=== PATIENT | female | born 1990 | race Caucasian/White ===

== ENCOUNTER 2017-03-13 10:40 | Observation (INO) | payer MEDICAID ==
[~2017-03-13] VITALS: Ht 167.6 cm; Wt 95.0 kg
[~2017-03-13 10:40] MED LIST: DESOTAB7 PO
[2017-03-13 10:42] VITALS: BP 151/82; PULSE 62; RESP 19; TEMP 97.9; O2SAT 100
[2017-03-13] MEDS ORDERED: SODIUM CHLORIDE 0.9% FLUSH 10 ML FLUSH IV FLUSH PRN (11:15)
[2017-03-13] MEDS ORDERED: ONDANSETRON HCL 4 MG/2 ML VIAL IVP ONE (11:15)
[2017-03-13] MEDS ORDERED: FAMOTIDINE 20 MG/2 ML VIAL IV PUSH ONE (11:15)
--- NOTE | 2017-03-13 11:18 | PD ---
HPI Chief Complaint: Abdominal Pain Time Seen by Provider: 11:06 Travel History International Travel<30 days: No Contact w/Intl Traveler<30days: No Traveled to known affect area: No History of Present Illness HPI 26-year-old female complains of abdominal pain, nausea vomiting. Patient states that she has history of gallbladder stone since 2014. Patient states that she started having abdominal pain with nausea vomiting for the past week and a half. Patient was seen in emergency room at [facility] 3 days ago. Patient states that she had ultrasound and blood tests done. Patient states that she was diagnosed with gallstone. Patient was advised to follow with her personal physician and outpatient surgeon. Patient states that she was given prescription for tramadol for pain. Patient states that she had persistent right upper quadrant abdominal pain and nausea vomiting since then. Isn't states the pain is sharp pain started on the right upper quadrant of the abdomen with radiation to the back and to the right chest area. Patient denies any fever chills. Patient denies any dysuria or frequency. Patient denies any vaginal discharge or bleeding. Patient denies any chance of being . On a scale of 1-10 the pain is a 10. Patient's on control pills. PFSH Past Medical History Diminished Hearing: No Immunizations Current: Yes ?: Not Past Surgical History Ear Surgery: Yes (TUBES) Social History Alcohol Use: No Tobacco Use: No Substance Use: No Allergies-Medications (Allergen,Severity, Reaction): Coded Allergies: bee venom protein (honey bee) (Verified Allergy, Severe, 03/05/17) grass pollen (Verified Allergy, Severe, 03/05/17) Reported Meds & Prescriptions Reported Meds & Active Scripts Active Reported Enskyce (Desogestrel-Ethinyl Estradiol) 0.15-30 Mg-Mcg Tab 1 Tab PO DAILY Review of Systems General / Constitutional: No: Fever Eyes: No: Visual changes HENT: No: Headaches Cardiovascular: No: Chest Pain or Discomfort Respiratory: No: Shortness of Breath Gastrointestinal: Positive: Nausea, Vomiting, Abdominal Pain Genitourinary: No: Dysuria Musculoskeletal: No: Pain Skin: No Rash Neurologic: No: Weakness Psychiatric: No: Depression Endocrine: No: Polydipsia Hematologic/Lymphatic: No: Easy Bruising Physical Exam Narrative GENERAL: Well-nourished, well-developed patient. SKIN: Focused skin assessment warm/dry. HEAD: Normocephalic. EYES: No scleral icterus. No injection or drainage. NECK: Supple, trachea midline. No JVD or lymphadenopathy. CARDIOVASCULAR: Regular rate and rhythm without murmurs, gallops, or rubs. RESPIRATORY: Breath sounds equal bilaterally. No accessory muscle use. GASTROINTESTINAL: Abdomen soft, nondistended. Patient has moderate tenderness on palpation right upper quadrant of the abdomen. No rebound tenderness. No mass. MUSCULOSKELETAL: No cyanosis, or edema. BACK: Nontender without obvious deformity. No CVA tenderness. No large exam normal. Data Data Last Documented VS Vital Signs Date Time Temp Pulse Resp B/P (MAP) Pulse Ox O2 Delivery O2 Flow Rate FiO2 03/13/17 11:47 99 03/13/17 10:42 97.9 62 19 Orders Orders Complete Blood Count With Diff (03/13/17 11:12) Comprehensive Metabolic Panel (03/13/17 11:12) Lipase (03/13/17 11:12) Urinalysis - C+S If Indicated (03/13/17 11:12) Us Abdomen Gallbladder (03/13/17 ) Iv Access Insert/Monitor (03/13/17 11:12) Ecg Monitoring (03/13/17 11:12) Oximetry (03/13/17 11:12) Ondansetron Inj (Zofran Inj) (03/13/17 11:15) Sodium Chlor 0.9% 1000 Ml Inj (Ns 1000 M (03/13/17 11:12) Sodium Chloride 0.9% Flush (Ns Flush) (03/13/17 11:15) Famotidine Inj (Pepcid Inj) (03/13/17 11:15) Ed Urine Pregnancytest Poc (03/13/17 11:12) Morphine Inj (Morphine Inj) (03/13/17 11:30) Hydromorphone Pf Inj (Dilaudid Pf Inj) (03/13/17 13:30) Piperacil-Tazo 3.375 Gm Premix (Zosyn 3. (03/13/17 13:30) Admit Order (Ed Use Only) (03/13/17 13:19) Labs Laboratory Tests Test 03/13/17 11:20 03/13/17 11:27 03/13/17 11:30 Blood Urea Nitrogen 10 MG/DL Creatinine 1.10 MG/DL Random Glucose 86 MG/DL Total Protein 7.1 GM/DL Albumin 3.7 GM/DL Calcium Level 9.0 MG/DL Alkaline Phosphatase 87 U/L Aspartate Amino Transf (AST/SGOT) 15 U/L Alanine Aminotransferase (ALT/SGPT) 17 U/L Total Bilirubin 0.4 MG/DL Sodium Level 138 MEQ/L Potassium Level 3.9 MEQ/L Chloride Level 107 MEQ/L Carbon Dioxide Level 24.2 MEQ/L Anion Gap 7 MEQ/L Estimat Glomerular Filtration Rate 61 ML/MIN Lipase 78 U/L Urine Color LIGHT-YELLOW Urine Turbidity CLEAR Urine pH 6.5 Urine Specific [place] 1.005 Urine Protein NEG mg/dL Urine Glucose (UA) NEG mg/dL Urine Ketones NEG mg/dL Urine Occult Blood NEG Urine Nitrite NEG Urine Bilirubin NEG Urine Urobilinogen LESS THAN 2.0 MG/DL Urine Leukocyte Esterase NEG Urine RBC LESS THAN 1 /hpf Urine WBC LESS THAN 1 /hpf Urine Squamous Epithelial Cells <1 /hpf Microscopic Urinalysis Comment CULT NOT INDICATED White Blood Count 7.3 TH/MM3 Red Blood Count 4.41 MIL/MM3 Hemoglobin 12.6 GM/DL Hematocrit 36.9 % Mean Corpuscular Volume 83.8 FL Mean Corpuscular Hemoglobin 28.5 PG Mean Corpuscular Hemoglobin Concent 34.1 % Red Cell Distribution Width 13.6 % Platelet Count 222 TH/MM3 Mean Platelet Volume 8.6 FL Neutrophils (%) (Auto) 71.3 % Lymphocytes (%) (Auto) 22.3 % Monocytes (%) (Auto) 4.4 % Eosinophils (%) (Auto) 1.6 % Basophils (%) (Auto) 0.4 % Neutrophils # (Auto) 5.2 TH/MM3 Lymphocytes # (Auto) 1.6 TH/MM3 Monocytes # (Auto) 0.3 TH/MM3 Eosinophils # (Auto) 0.1 TH/MM3 Basophils # (Auto) 0.0 TH/MM3 CBC Comment DIFF FINAL Differential Comment MDM Medical Decision Making Medical Screen Exam Complete: Yes Emergency Medical Condition: Yes Interpretation(s) Last Impressions Gall Bladder Ultrasound 03/13/17 0000 Signed Impressions: Service Date/Time: Monday, March 13, 2017 11:37 - CONCLUSION: 1. There are multiple stones in the gallbladder. No wall thickening or pericholecystic fluid is present but the managing editor reports a positive sonographic Julian sign raising suspicion for gallbladder inflammation. 2. Remainder of the examination is within normal limits. Curtis Odell MD CBC within normal limit. CMP within normal limit. UA is negative. Differential Diagnosis Differential diagnosis including cholecystitis, cholangitis, gastritis, PUD, pancreatitis, colitis, UTI, pyelonephritis, nephrolithiasis. Narrative Course 26-year-old female with right upper quadrant abdominal pain and nausea vomiting. History of gallstone. Normal saline solution 1 25 cc an hour. Morphine 2 mg IV. Zofran 4 mg IV. Pepcid 20 mg IV. Dilaudid 1 mg IV. Zosyn 3.375 g IV given. Diagnosis Primary Impression: Gallbladder colic Additional Impression: Cholelithiasis Qualified Codes: K80.20 - Calculus of gallbladder without cholecystitis without obstruction Keith Barton MD Mar 13, 2017 11:18
[2017-03-13] MEDS ORDERED: MORPHINE SULFATE 2 MG/ML INJ IV PUSH ONE (11:30)
[2017-03-13] MEDS: SODIUM CHLOR 0.9% 1000 ML INJ 1,000 ML IV SCH ×2 (11:46→13:32)
[2017-03-13 11:47] VITALS: O2SAT 99
[2017-03-13 11:53] LABS: AUTOMATED NEUTROPHIL # 5.2 TH/MM3 (1.8-7.7); BASOPHIL % 0.4 % (0.0-2.0); EOSINOPHIL # 0.1 TH/MM3 (0-0.4); EOSINOPHIL % 1.6 % (0.0-4.0); HEMATOCRIT 36.9 % (35.0-46.0); HEMOGLOBIN 12.6 GM/DL (11.6-15.3); LYMPH % 22.3 % (9.0-44.0); LYMPHOCYTE # 1.6 TH/MM3 (1.0-4.8); MEAN CELL VOLUME 83.8 FL (80.0-100.0); MEAN CORPUSCULAR HEMOGLOBIN 28.5 PG (27.0-34.0); MEAN CORPUSCULAR HGB CONC 34.1 % (32.0-36.0); MEAN PLATELET VOLUME 8.6 FL (7.0-11.0); MONO % 4.4 % (0.0-8.0); MONOCYTE # 0.3 TH/MM3 (0-0.9); NEUT % 71.3 % (16.0-70.0); PLATELET COUNT 222 TH/MM3 (150-450); RED BLOOD COUNT 4.41 MIL/MM3 (4.00-5.30); RED CELL DISTRIBUTION WIDTH 13.6 % (11.6-17.2); WHITE BLOOD COUNT 7.3 TH/MM3 (4.0-11.0)
[2017-03-13 11:58] LABS: BILIRUBIN, URINE NEG (NEG); BLOOD, URINE NEG (NEG); GLUCOSE,URINE NEG (NEG); KETONE, URINE NEG (NEG); NITRITE,URINE NEG (NEG); PH, URINE 6.5 (5.0-8.5); SQUAMOUS EPITHELIAL CELL URINE <1 /hpf (0-5); URINE COLOR LIGHT-YELLOW (YELLW/STRAW); URINE LEUKOCYTE ESTERASE NEG (NEG)
[2017-03-13] MEDS ORDERED: NEOSTIGMINE 5 MG/5 ML SYRINGE IV PUSH ONE (12:00)
[2017-03-13] MEDS ORDERED: DEXAMETHASONE SOD PHOS 4 MG/ML VIAL IV ONE (12:00)
[2017-03-13] MEDS ORDERED: ONDANSETRON HCL 4 MG/2 ML VIAL IV PUSH ONE (12:00)
[2017-03-13] MEDS ORDERED: PROPOFOL 200 MG/20 ML AMP IV ONE (12:00)
[2017-03-13] MEDS ORDERED: ROCURONIUM INJ 50 MG/5 ML SYRINGE IV PUSH ONE (12:00)
[2017-03-13] MEDS ORDERED: LIDOCAINE HCL 1% PF 5 ML SYRINGE OTHER ONE (12:00)
[2017-03-13] MEDS ORDERED: KETOROLAC TROMETHAMINE 30 MG/ML (IVP) VIAL IV PUSH ONE (12:00)
[2017-03-13] MEDS ORDERED: GLYCOPYRROLATE 1 MG/5 ML SYRINGE IV PUSH ONE (12:00)
[2017-03-13 12:05] LABS: ALBUMIN 3.7 GM/DL (3.4-5.0); AST (GOT) 15 U/L (15-37); BICARBONATE 24.2 MEQ/L (21.0-32.0); BLOOD UREA NITROGEN 10 MG/DL (7-18); CHLORIDE 107 MEQ/L (98-107); GLOMERULAR FILTRATION RATE 61 ML/MIN (>89); GLUCOSE,RANDOM 86 MG/DL (74-106); SODIUM (NA) 138 MEQ/L (136-145)
[2017-03-13 12:07] LABS: ALT (GPT) 17 U/L (10-53)
[2017-03-13 12:09] LABS: ALKALINE PHOSPHATASE 87 U/L (45-117); TOTAL BILIRUBIN ADULT 0.4 MG/DL (0.2-1.0); TOTAL PROTEIN 7.1 GM/DL (6.4-8.2)
--- NOTE | 2017-03-13 12:27 | RADRPT ---
EXAM DATE/TIME: 03/13/2017 11:37 [facility] COMPARISON: No previous studies available for comparison. INDICATIONS : Right upper quadrant pain. Gallstones. MEDICAL HISTORY : Gallstones. SURGICAL HISTORY : Ear tubes. ENCOUNTER: Initial ACUITY: 2 weeks PAIN SCORE: 8/10 LOCATION: Right upper quadrant MEASUREMENTS: LIVER: 16.5 cm length COMMON DUCT: 7 mm RIGHT KIDNEY: 10.3 x 4.8 x 4.3 cm FINDINGS: LIVER: Normal echotexture without focal lesion or ductal dilatation. COMMON DUCT: No intraluminal mass or stone visualized. GALLBLADDER: There are multiple stones in the gallbladder. No wall thickening or pericholecystic fluid. The sonogr apher reports a positive sonographic Julian sign. PANCREAS: The visualized portions are within normal limits. RIGHT KIDNEY: No evidence of hydronephrosis, stone, or mass. CONCLUSION: 1. There are multiple stones in the gallbladder. No wall thickening or pericholecystic fluid is prese nt but the truck trailer mechanic reports a positive sonographic Julian sign raising suspicion for gallbladder i nflammation. 2. Remainder of the examination is within normal limits. Curtis Odell MD on March 13, 2017 at 12:05 Board Certified Radiologist. This report was verified electronically.
[2017-03-13] MEDS ORDERED: HYDROmorphone HCL PF 2 MG/ML VIAL IV PUSH ONE (13:30)
[2017-03-13] MEDS ORDERED: PIPERACIL-TAZO 3.375 GM PREMIX 50 ML IV ONE (13:30)
[2017-03-13 13:49] VITALS: BP 122/77; PULSE 55; RESP 20; TEMP 97.8; O2SAT 99
--- NOTE | 2017-03-13 14:28 | MH ---
cc: GEOVANNY MUKHERJEE M.D. DATE OF ADMISSION 03/13/2017 REASON FOR ADMISSION Abdominal pain, cholecystitis. HISTORY OF PRESENT ILLNESS Carey is a pleasant 26-year-old female who has had about a one-week history of severe right upper quadrant abdominal pain. She gives a history of multiple episodes of right upper quadrant pain associated with nausea and vomiting. She states during her most recent she had several episodes of gallbladder attacks and she was advised to undergo cholecystectomy. She elected to complete her and then consider cholecystectomy at that time. She states she was lost to follow-up. Most recently she has had severe right upper quadrant pain associated with nausea and vomiting. Apparently she was at [facility] ER three days ago. She was worked up and told she had a gallbladder problem, but was advised that they did not perform that surgery and she should follow-up with her outpatient physician for a surgical referral. The patient states the pain persisted and she came to the ER here. She states the pain began after she ate a cheeseburger. She denies any fever or chills. She denies any urinary frequency or dysuria. She denies any vaginal discharge and she denies being . She states the pain is a 10 on a scale of 1-10, although she was talking on her cell phone when I came in the room. PAST MEDICAL HISTORY None. PAST SURGICAL HISTORY Tubes in her ears. MEDICATIONS She was given Tramadol for her pain, and she takes control pills. ALLERGIES BEES, GRASS AND POLLEN. SOCIAL HISTORY She does not smoke, quit in January 2017. She does not drink alcohol at all. She is the mother of two young children ages 2 and 1. FAMILY HISTORY She reports that her brother had gallbladder surgery. PHYSICAL EXAMINATION VITAL SIGNS: Temperature 98, pulse 50, blood pressure 130/80, respiratory rate 20. GENERAL: In general this is an obese, pleasant white female sitting in the ER in no apparent distress. HEENT: Sclera white. Pupils equal, round and reactive to light. Oropharynx is clear and moist. NECK: Supple. No masses. LUNGS: Clear to auscultation bilaterally. HEART: S1, S2. No murmur. ABDOMEN: Soft. Tender in the right upper quadrant with Julian's sign. She has multiple abdominal wall stria from the and no obvious hernias. EXTREMITIES: Free range of motion x4. NEUROLOGIC: She is alert and oriented x3. LABORATORY White blood cell count 7, hemoglobin 12, platelet count 222. Electrolytes all within normal limits. Urinalysis is negative. IMAGING Ultrasound demonstrates gallstones. No thickening or pericholecystic fluid. She was reported to have a sonographic Julian's sign. IMPRESSION Acute cholecystitis. PLAN The risks and benefits of immediate cholecystectomy was discussed with the patient and she is agreeable. The Operating Room was notified and she will be brought up shortly. The patient understands this is an unplanned urgent procedure and does carry increased risk of complication. She expressed understanding and is willing to proceed. MD ISIS James/KAMALA /1:50 PM /2:13 PM
[2017-03-13 14:58] VITALS: BP 131/88; PULSE 93; RESP 16; O2SAT 99
[2017-03-13] MEDS ORDERED: BUPIVACAINE/EPINEPHRINE 0.5% PF 30 ML VIAL ONE (15:02)
[2017-03-13] MEDS ORDERED: BUPIVACAINE/EPINEPHRINE 0.25% PF 10 ML VIAL ONE (15:05)
[2017-03-13] MEDS ORDERED: METOPROLOL TARTRATE 25 MG TAB PO PRN (15:30)
[2017-03-13] MEDS ORDERED: SODIUM CHLORID 0.9% 500 ML IV PRN (15:30)
[2017-03-13] MEDS ORDERED: CHLORHEXIDINE GLUCONATE 2 % 1 PACK (2 CLOTHS) TOPICAL PRN (15:30)
[2017-03-13] MEDS ORDERED: LACTATED RINGER'S 1000 ML IV PRN (15:30)
[2017-03-13] MEDS ORDERED: POVIDONE IODINE 5% (ANTISEPSIS KIT) 4 APPLICATIONS EACH NARE PRN (15:30)
[2017-03-13] MEDS ORDERED: *MEPERIDINE 25 MG INJ VIAL PERIprocedural Use ONLY ONE (17:44)
[2017-03-13] MEDS ORDERED: MIDAZOLAM HCL 2 MG/2 ML VIAL ONE (17:55)
[2017-03-13] MEDS ORDERED: DO NOT ADM ANY ANTICOAGULANT DRUGS PRN (18:45)
[2017-03-13] MEDS ORDERED: KETOROLAC TROMETHAMINE 30 MG/ML (IVP) VIAL IV PUSH PRN (19:00)
[2017-03-13] MEDS ORDERED: DEXTROSE 5%-LACTATED RING INJ 1,000 ML IV SCH (19:00)
[2017-03-13] MEDS ORDERED: ONDANSETRON HCL 4 MG/2 ML VIAL IV PUSH PRN (19:00)
[2017-03-13] MEDS ORDERED: MORPHINE SULFATE 4 MG/ML INJ IV PRN (19:00)
[2017-03-13] MEDS ORDERED: Post-op Orders (for Pharmacy) XX ONE (19:45)
[2017-03-13] MEDS ORDERED: NALOXONE HCL 0.4 MG/ML AMP IV PUSH PRN (19:45)
[2017-03-13] MEDS ORDERED: diphenhydrAMINE HCL 50 MG/ML VIAL IV PUSH PRN (19:45)
[2017-03-13 20:00] VITALS: BP 121/79; PULSE 74; RESP 18; TEMP 96.6; O2SAT 100
[2017-03-13] MEDS: ACETAMINOPHEN/HYDROcodone 325 MG/5 MG TAB PO PRN (21:33)
[2017-03-13] MEDS: PCA - TOTAL MG MORPHINE DELIVERED PER SHIFT SCH (21:34)
[2017-03-13 23:30] VITALS: O2SAT 97
[2017-03-14] VITALS: BP 117/77; PULSE 84; RESP 18; TEMP 97.3; O2SAT 99
[2017-03-14] MEDS: ACETAMINOPHEN/HYDROcodone 325 MG/5 MG TAB PO PRN (03:41)
[2017-03-14 04:00] VITALS: BP 115/73; PULSE 65; RESP 18; TEMP 97.7; O2SAT 99
[2017-03-14] MEDS: PCA - TOTAL MG MORPHINE DELIVERED PER SHIFT SCH (06:00)
[2017-03-14 08:00] VITALS: BP 120/77; PULSE 72; RESP 17; TEMP 97.9; O2SAT 96
[2017-03-14 08:17] VITALS: O2SAT 99
[2017-03-14] MEDS ORDERED: ACETAMINOPHEN/HYDROcodone 325 MG/5 MG TAB PO PRN ×2 (08:45)
--- NOTE | 2017-03-14 12:56 | HHI.DS ---
Discharge Summary Admission Date Mar 13, 2017 at 13:20 Discharge Date: Mar 14, 2017 Admitting Diagnosis gallbladder colic. Cholelithiasis. Brief History 26 year old female POD1 lap frank. CBC/BMP: 03/13/17 1130 03/13/17 1120 Significant Findings Laboratory Tests Test 03/13/17 11:20 03/13/17 11:27 03/13/17 11:30 Creatinine 1.10 MG/DL (0.50-1.00) Estimat Glomerular Filtration Rate 61 ML/MIN (>89) Neutrophils (%) (Auto) 71.3 % (16.0-70.0) PE at Discharge Alert and awake Resp: CTAB Cardio: RRR Abd: soft minimally tender; mild bloody drainage on umbilicus Hospital Course This is a 26 year old female POD1 laparoscopic cholecystectomy. The patient's pain was controlled using oral pain medications. The patient was tolerating a regular diet. Patient follow up with Dr. Crowley on March 23 in the office. A prescription for pain medications were left on the chart as well as a work note. Pt Condition on Discharge: Good Discharge Disposition: Discharge Home Discharge Instructions DIET: Follow Instructions for: As Tolerated, No Restrictions Activities you can perform: See Additionl Instruction Other Activity Instructions: Okay to shower; pat incisions dry Showers only; no bathtubs No heavy pushing pulling or lifting Mireya Costello Mar 14, 2017 12:56
--- NOTE | 2017-03-27 20:21 | MP ---
cc: LONNYGEOVANNY DATE OF SURGERY 03/13/2017 PREOPERATIVE DIAGNOSIS Acute cholecystitis POSTOPERATIVE DIAGNOSIS 1. Acute cholecystectomy 2. Hydrops of the gallbladder. PROCEDURE PERFORMED Laparoscopic cholecystectomy SURGEON Evy Crowley MD ANESTHESIA General endotracheal COMPLICATIONS None INDICATIONS FOR PROCEDURE Carey is a very pleasant 27-year-old female who has had multiple bouts of severe right epigastric and right upper quadrant abdominal pain. She was seen at [facility] and advised to follow up with a surgeon. Her pain persisted and then worsened. She came to the [place] ER where she was seen and evaluated. On exam, she has had no significant right upper quadrant tenderness. Ultrasound demonstrated multiple large gallstones with thickened gallbladder wall and some pericholecystic fluid. She was advised to undergo immediate cholecystectomy. Risks and benefits of open laparoscopic cholecystectomy were discussed with her and she was agreeable. PROCEDURE IN DETAIL The patient was identified, brought to the operating room, placed supine on the operating table. After adequate general endotracheal anesthesia was achieved, the abdomen was prepped and draped in standard surgical fashion via supraumbilical space, anesthetized with 0.25% Marcaine. Supraumbilical incision was made. Dissection was carried down subcutaneous tissue to midline fascia. Midline fascia was then incised sharply. A finger was then placed in the peritoneal cavity without difficulty. A blunt balloon trocar was inserted and the abdomen was insufflated to 15 mmHg using CO2 gas. Next, two 5 mm trocars were placed in the right upper quadrant after anesthetizing the skin and subcutaneous tissue with 0.25% Marcaine. Attention was directed to right upper quadrant where a markedly distended, edematous gallbladder was identified. Gallbladder was very distended and difficult to grasp. We therefore performed a needle decompression. Needle decompression revealed about 80 mL of clear fluid indicating complete obstruction of the cystic duct. Once we did this, we were able to manipulate the gallbladder. Gallbladder was then retracted cephalad. Gallbladder neck was then carefully dissected identifying the cystic duct. Once the cystic duct was clearly seen in two planes, it was clipped twice proximally, once distally and then divided. Cystic artery was then identified and clipped twice proximally, once distally and divided. Gallbladder was then dissected out of the hepatic fossa using electrocautery Bovie. Gallbladder was placed into an Endopouch bag and then brought out through the supraumbilical port. We did have to enlarge the supraumbilical incision in order to get the gallbladder out due to its large size and its edema. Gallbladder was inspected, found to contain multiple stones. It was markedly thickened. Cystic duct was occluded with the Ligaclip. Gallbladder was sent to pathology for analysis. Next, the abdominal cavity was carefully inspected. Liver bed was completely hemostatic. Clips were inspected on the cystic duct stump. There is no evidence of leakage of bile. Cystic artery was also inspected and there was no bleeding. All clips were in place. At this point, the abdominal cavity was briefly inspected and there no gross abnormalities noted. Abdomen was then desufflated. The ports were removed under direct vision. Midline fascia was repaired with 0 Vicryl in [id number] fashion. Skin was closed with 4-0 Vicryl. The patient tolerated the procedure well, was awakened, brought to recovery in stable condition. MD ISIS James/ /9:22 AM /7:06 PM
== END 2017-03-14 10:05 | disposition home or self-care (01) ==
LOC: NEPD 10:40 → NEDA 13:20 → INTOOBSV 13:20 → N07B 16:37
PROVIDERS: ADMIT Surgery Trauma Surgery; ATTEND Surgery Trauma Surgery
DX: K80.00 Calculus of gallbladder with acute cholecystitis without obstruction (principal); K82.1 Hydrops of gallbladder
CPT/HCPCS: 00790; 47562; 76705; 80053; 81001; 83690; 84703; 85025; 88304; 94150; 96374; 96375; 99285; G0378; J1100; J1170; J1885; J2175; J2250; J2270; J2405; J2543; J2710; J3010; J7030; J7120; J7121

== ENCOUNTER 2017-03-18 19:19 | Emergency (ER) | payer MEDICAID ==
[~2017-03-18] VITALS: Ht 167.6 cm; Wt 95.0 kg
[2017-03-18 19:22] VITALS: BP 140/85; PULSE 137; RESP 18; TEMP 98.5; O2SAT 96
[2017-03-18] MEDS ORDERED: SODIUM CHLOR 0.9% 1000 ML INJ 1,000 ML IV SCH (19:42)
[2017-03-18] MEDS ORDERED: MORPHINE SULFATE 4 MG/ML INJ IV PUSH ONE (19:45)
[2017-03-18] MEDS ORDERED: SODIUM CHLORIDE 0.9% FLUSH 10 ML FLUSH IV FLUSH PRN (19:45)
[2017-03-18] MEDS ORDERED: ONDANSETRON HCL 4 MG/2 ML VIAL IVP ONE (19:45)
--- NOTE | 2017-03-18 19:50 | PD ---
HPI Chief Complaint: Abdominal Pain Time Seen by Provider: 19:47 Travel History International Travel<30 days: No Contact w/Intl Traveler<30days: No Traveled to known affect area: No History of Present Illness HPI 26-year-old female status post laparoscopic cholecystectomy 03/13/17 presents to the ED for evaluation of fever, right upper quadrant abdominal pain, nausea, nonbilious vomiting and watery diarrhea. Onset around 1 AM this morning. Patient states that she measured a fever of 101.2 by oral thermometer earlier this afternoon. She states that she treated with ibuprofen. She denies chest pain, palpitations, shortness of breath, calf pain. She states that she ate at [employer] for breakfast, but angulated for lunch and a cheesy chicken pasta dish for dinner prior to onset of symptoms. Surgeon, Dr. Crowley. [facility] Past Medical History Anxiety: Yes Depression: Yes Cancer: No Cardiovascular Problems: No Diminished Hearing: No Endocrine: No Genitourinary: No Immune Disorder: No Musculoskeletal: No Neurologic: No Reproductive: No Respiratory: No Immunizations Current: Yes Tetanus Vaccination: Unknown Influenza Vaccination: No ?: Not LMP: 02/19/2017 Past Surgical History Cholecystectomy: Yes Ear Surgery: Yes (TUBES) Social History Alcohol Use: No Tobacco Use: No Substance Use: No Allergies-Medications (Allergen,Severity, Reaction): Coded Allergies: bee venom protein (honey bee) (Verified Allergy, Severe, 03/18/17) grass pollen (Verified Allergy, Severe, 03/18/17) Reported Meds & Prescriptions Reported Meds & Active Scripts Active Zofran Odt (Ondansetron Odt) 4 Mg Tab 4 Mg SL Q8HR PRN Reported Enskyce (Desogestrel-Ethinyl Estradiol) 0.15-30 Mg-Mcg Tab 1 Tab PO DAILY Review of Systems Except as stated in HPI: all other systems reviewed are Neg Physical Exam Narrative GENERAL: Well-nourished, well-developed anxious, tearful white female in no acute distress. SKIN: Focused skin assessment warm/dry. 4 small surgical incisions of the abdomen, Steri-Strips in place, no signs of infection. HEAD: Normocephalic. EYES: No scleral icterus. No injection or drainage. NECK: Supple, trachea midline. No JVD or lymphadenopathy. CARDIOVASCULAR: Regular rate and rhythm without murmurs, gallops, or rubs. RESPIRATORY: Breath sounds equal bilaterally. No accessory muscle use. GASTROINTESTINAL: Abdomen soft, nondistended. Tender palpation in the right upper quadrant. Active bowel sounds. MUSCULOSKELETAL: No cyanosis, or edema. BACK: Nontender without obvious deformity. No CVA tenderness. Data Data Last Documented VS Vital Signs Date Time Temp Pulse Resp B/P (MAP) Pulse Ox O2 Delivery O2 Flow Rate FiO2 03/18/17 21:49 03/18/17 19:54 98 Nasal Cannula 2.00 03/18/17 19:54 85 26 03/18/17 19:22 98.5 Orders Orders Complete Blood Count With Diff (03/18/17 19:42) Comprehensive Metabolic Panel (03/18/17 19:42) Lipase (03/18/17 19:42) Lactic Acid (03/18/17 19:42) Prothrombin Time / Inr (Pt) (03/18/17 19:42) Act Partial Throm Time (Ptt) (03/18/17 19:42) Urinalysis - C+S If Indicated (03/18/17 19:42) Iv Access Insert/Monitor (03/18/17 19:42) Ecg Monitoring (03/18/17 19:42) Oximetry (03/18/17 19:42) Morphine Inj (Morphine Inj) (03/18/17 19:45) Ondansetron Inj (Zofran Inj) (03/18/17 19:45) Sodium Chlor 0.9% 1000 Ml Inj (Ns 1000 M (03/18/17 19:42) Sodium Chloride 0.9% Flush (Ns Flush) (03/18/17 19:45) Ct Abd/Pel W Iv Contrast(Rout) (03/18/17 19:50) Iohexol 350 Inj (Omnipaque 350 Inj) (03/18/17 20:16) Acetamin-Hydrocod 325-5 Mg ([place] 5-325 (03/18/17 21:45) Ed Discharge Order (03/18/17 21:40) Labs Laboratory Tests Test 03/18/17 20:00 03/18/17 21:09 White Blood Count 7.0 TH/MM3 Red Blood Count 4.68 MIL/MM3 Hemoglobin 13.5 GM/DL Hematocrit 39.6 % Mean Corpuscular Volume 84.7 FL Mean Corpuscular Hemoglobin 28.7 PG Mean Corpuscular Hemoglobin Concent 33.9 % Red Cell Distribution Width 13.5 % Platelet Count 223 TH/MM3 Mean Platelet Volume 8.3 FL Neutrophils (%) (Auto) 75.3 % Lymphocytes (%) (Auto) 16.5 % Monocytes (%) (Auto) 6.1 % Eosinophils (%) (Auto) 1.9 % Basophils (%) (Auto) 0.2 % Neutrophils # (Auto) 5.3 TH/MM3 Lymphocytes # (Auto) 1.2 TH/MM3 Monocytes # (Auto) 0.4 TH/MM3 Eosinophils # (Auto) 0.1 TH/MM3 Basophils # (Auto) 0.0 TH/MM3 CBC Comment DIFF FINAL Differential Comment Prothrombin Time 9.9 SEC Prothromb Time International Ratio 1.0 RATIO Activated Partial Thromboplast Time 23.3 SEC Blood Urea Nitrogen 13 MG/DL Creatinine 0.91 MG/DL Random Glucose 81 MG/DL Total Protein 6.9 GM/DL Albumin 3.3 GM/DL Calcium Level 8.5 MG/DL Alkaline Phosphatase 89 U/L Aspartate Amino Transf (AST/SGOT) 13 U/L Alanine Aminotransferase (ALT/SGPT) 20 U/L Total Bilirubin 0.4 MG/DL Sodium Level 137 MEQ/L Potassium Level 3.7 MEQ/L Chloride Level 108 MEQ/L Carbon Dioxide Level 21.3 MEQ/L Anion Gap 8 MEQ/L Estimat Glomerular Filtration Rate 76 ML/MIN Lactic Acid Level 1.0 mmol/L Lipase 121 U/L Urine Color LIGHT-YELLOW Urine Turbidity HAZY Urine pH 6.0 Urine Specific [place] GREATER THAN 1.050 Urine Protein 30 mg/dL Urine Glucose (UA) NEG mg/dL Urine Ketones NEG mg/dL Urine Occult Blood NEG Urine Nitrite NEG Urine Bilirubin NEG Urine Urobilinogen LESS THAN 2.0 MG/DL Urine Leukocyte Esterase NEG Urine RBC 5 /hpf Urine WBC 2 /hpf Urine Squamous Epithelial Cells 13 /hpf Urine Bacteria RARE /hpf Urine Mucus FEW /lpf Microscopic Urinalysis Comment CULT NOT INDICATED MDM Medical Decision Making Medical Screen Exam Complete: Yes Emergency Medical Condition: Yes Differential Diagnosis biliary colic versus postoperative pain versus CBD stone versus anxiety versus UTI versus paralytic ileus versus other other Narrative Course 26-year-old female status post laparoscopic cholecystectomy 03/13/17 presents to the ED for evaluation of fever, right upper quadrant abdominal pain, nausea, nonbilious vomiting and watery diarrhea. Onset around 1 AM this morning. Patient states that she measured a fever of 101.2 by oral thermometer earlier this afternoon. She states that she ate at [employer] for breakfast, but angulated for lunch and a cheesy chicken pasta dish for dinner prior to onset of symptoms. Surgeon, Dr. Crowley. Temp 98.5, pulse 137, BP 140 year to the ED 5 O2 sats 96% on room air. Tachycardia resolved in the exam room. On physical exam the patient is tearful and anxious appearing. There are 4 small surgical incisions without signs of infection, abdomen tender to palpation in the right upper quadrant. Exam otherwise unremarkable. IV was established. Patient was administered 4 mg Zofran, 4 mg morphine and 1 L normal saline IV. CBC: WBC 7.0. Hemoglobin 13.5. INR 1.0. CMP: BUN 13, creatinine 0.91. Glucose 81. Bilirubin 0.4. AST 13, ALT 20. Lactic acid 1.0. Lipase 121. UA: Abdominal pelvis CT: Right lower lobe nodule without demonstrable calcifications could be inflammatory, recommend follow-up with repeat CT in 6 months. There is a regular density underneath the anterior abdominal scleral scar appears to be intraperitoneal potentially scar and follow-up is suggested with noncontrast CT in 6 months. Tiny pericardial effusion and slight splenomegaly. On recheck patient reports improvement of her pain and nausea. I discussed the results of the workup with the patient. I recommended that she resume medications as scheduled and provided her with a few doses of Zofran. She is instructed to eat a BRAT diet, gradually reintroduce new foods over the next 48 hours. We discussed reasons to return to the ED. She has follow-up with Dr. Crowley on 03/23. She is provided a copy of her CT scan. She indicated understanding of instructions and is agreeable to the care plan. She is stable and discharged home. Diagnosis Primary Impression: Postoperative abdominal pain Additional Impression: Nausea and vomiting Qualified Codes: R11.2 - Nausea with vomiting, unspecified Referrals: Luis A Crowley MD Patient Instructions: Abdominal Pain (ED), Acute Nausea and Vomiting (ED), Diet for Stomach Ulcers and Gastritis (ED), General Instructions Additional Instructions: Rest, hydrate. Resume pain medications as previously prescribed. Take Zofran every 6-8 hours as needed for nausea and vomiting. Eat a bland diet for the next 48 hours and gradually reintroduce new foods. Bananas, plain rice, apple sauce and dry toast are appropriate for the next 24 hours. Follow-up with Dr. Crowley as discussed. Return to the ED for worsening symptoms or any urgent or emergent medical condition. Med/Other Pt SpecificInfo: Prescription(s) given Scripts Ondansetron Odt (Zofran Odt) 4 Mg Tab 4 MG SL Q8HR Y for Nausea/Vomiting, #6 TAB 0 Refills Prov: Vitaly Vital MD 03/18/17 Disposition: 01 DISCHARGE HOME Condition: Stable Danna Bacon Mar 18, 2017 19:50
[2017-03-18 19:54] VITALS: BP 135/84; PULSE 85; RESP 26; O2SAT 98
[2017-03-18 20:09] LABS: AUTOMATED NEUTROPHIL # 5.3 TH/MM3 (1.8-7.7); BASOPHIL % 0.2 % (0.0-2.0); EOSINOPHIL # 0.1 TH/MM3 (0-0.4); EOSINOPHIL % 1.9 % (0.0-4.0); HEMATOCRIT 39.6 % (35.0-46.0); HEMOGLOBIN 13.5 GM/DL (11.6-15.3); LYMPH % 16.5 % (9.0-44.0); LYMPHOCYTE # 1.2 TH/MM3 (1.0-4.8); MEAN CELL VOLUME 84.7 FL (80.0-100.0); MEAN CORPUSCULAR HEMOGLOBIN 28.7 PG (27.0-34.0); MEAN CORPUSCULAR HGB CONC 33.9 % (32.0-36.0); MEAN PLATELET VOLUME 8.3 FL (7.0-11.0); MONO % 6.1 % (0.0-8.0); MONOCYTE # 0.4 TH/MM3 (0-0.9); NEUT % 75.3 % (16.0-70.0); PLATELET COUNT 223 TH/MM3 (150-450); RED BLOOD COUNT 4.68 MIL/MM3 (4.00-5.30); RED CELL DISTRIBUTION WIDTH 13.5 % (11.6-17.2)
[2017-03-18] MEDS ORDERED: IOHEXOL 350 MG/ML 10 ML VIAL (for RAD DIAG) IVCONTRAST ONE (20:16)
[2017-03-18 20:28] LABS: ALBUMIN 3.3 GM/DL (3.4-5.0); ALT (GPT) 20 U/L (10-53); AST (GOT) 13 U/L (15-37); BICARBONATE 21.3 MEQ/L (21.0-32.0); BLOOD UREA NITROGEN 13 MG/DL (7-18); CALCIUM 8.5 MG/DL (8.5-10.1); CHLORIDE 108 MEQ/L (98-107); CREATININE 0.91 MG/DL (0.50-1.00); GLOMERULAR FILTRATION RATE 76 ML/MIN (>89); GLUCOSE,RANDOM 81 MG/DL (74-106); SODIUM (NA) 137 MEQ/L (136-145)
[2017-03-18 20:31] LABS: ALKALINE PHOSPHATASE 89 U/L (45-117); TOTAL BILIRUBIN ADULT 0.4 MG/DL (0.2-1.0); TOTAL PROTEIN 6.9 GM/DL (6.4-8.2)
[2017-03-18 20:35] LABS: PROTHROMBIN TIME - PATIENT 9.9 SEC (9.8-11.6)
--- NOTE | 2017-03-18 20:38 | RADRPT ---
EXAM DATE/TIME: 03/18/2017 20:12 [facility] COMPARISON: No previous studies available for comparison. INDICATIONS : Diffuse abdomen pain today. IV CONTRAST: 95 cc Omnipaque 350 (iohexol) IV ORAL CONTRAST: No oral contrast ingested. RADIATION DOSE: 13.78 CTDIvol (mGy) MEDICAL HISTORY : None SURGICAL HISTORY : Cholecystectomy. ENCOUNTER: Initial ACUITY: 1 day PAIN SCALE: 7/10 LOCATION: Bilateral abdomen TECHNIQUE: Volumetric scanning of the abdomen and pelvis was performed. Using automated exposure control and ad justment of the mA and/or kV according to patient size, radiation dose was kept as low as reasonably achievable to obtain optimal diagnostic quality images. DICOM format image data is available electro nically for review and comparison. FINDINGS: CT Abdomen: The liver, pancreas, kidneys, adrenals are unremarkable. There is no evidence for any bobby reciable pathological adenopathy, free fluid, or bowel obstruction. There is a tiny pericardial effu candelaria. There is evidence for prior cholecystectomy. Approximate 7 mm right lower lobe nodule is seen. The spleen is enlarged measuring 12.9 cm in craniocaudal dimension without focal lesions for techniqu e. There is anterior abdominal wall scar and underneath it there is an approximate 1.1 cm irregular d ensity that appears to be intraperitoneal probably an area of scar, however nonspecific and should be followed. Underlying neoplastic process is obviously difficult to exclude, however not suspected at this time. There are multiple small mesenteric lymph nodes benign in appearance. CT pelvis: There is no evidence for mass, abscess formation, or any significant adenopathy within the pelvis. CONCLUSION: 1. Right lower lobe nodule without demonstrable calcifications could potentially be inflammatory, how ever should be followed with repeat CT examination in 6 months. 2. There is also irregular density underneath the anterior abdominal wall scar appears to be intraper itoneal potentially scar and a follow up is suggested with noncontrast CT examination in 6 months. 3. Tiny pericardial effusion and slight splenomegaly. Mitzy Felix MD on March 18, 2017 at 20:31 Board Certified Radiologist. This report was verified electronically.
[2017-03-18 21:33] LABS: BACTERIA, URINE RARE /hpf; BILIRUBIN, URINE NEG (NEG); BLOOD, URINE NEG (NEG); GLUCOSE,URINE NEG (NEG); KETONE, URINE NEG (NEG); MUCUS URINE FEW /lpf (OCC); NITRITE,URINE NEG (NEG); SQUAMOUS EPITHELIAL CELL URINE 13 /hpf (0-5); URINE COLOR LIGHT-YELLOW (YELLW/STRAW); URINE LEUKOCYTE ESTERASE NEG (NEG)
[2017-03-18] MEDS ORDERED: ZOFR4TAB3 SL (21:40)
[2017-03-18] MEDS ORDERED: ACETAMINOPHEN/HYDROcodone 325 MG/5 MG TAB PO ONE (21:45)
== END 2017-03-18 22:08 | disposition home or self-care (01) ==
LOC: NEPE 19:19
DX: G89.18 Other acute postprocedural pain (principal); R10.11 Right upper quadrant pain; R11.2 Nausea with vomiting, unspecified; I31.3 Pericardial effusion (noninflammatory); R16.1 Splenomegaly, not elsewhere classified; R00.0 Tachycardia, unspecified; F41.9 Anxiety disorder, unspecified; F32.9 Major depressive disorder, single episode, unspecified; Z79.899 Other long term (current) drug therapy
CPT/HCPCS: 74177; 80053; 81001; 83605; 83690; 85025; 85610; 85730; 96361; 96374; 96375; 99284; J2270; J2405; J7030; Q9967